=== PATIENT | male | born 1950 | race Caucasian/White ===

== ENCOUNTER 2024-05-15 09:32 | Outpatient (AMB) | payer MEDICARE, OTHER, SELFPAY ==
--- NOTE | 2024-05-15 09:48 | HO.SPINEOV ---
Intake Visit Reasons: low back pain Intake Note: Mr. Child, 73 y/o male, is here today c/o low back and bilateral leg pain. 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 HPI: This 73 year old male developed radiating pain in his right leg in November. Normally, he is very active with walking 4 miles a day and cycling and swimming. He has no idea why this symptom occurred but since November he can not walk for long distances before he has to sit down. The pain radiates to the front of his thigh and sometimes to his ankle. He can still cycle for long distances but when he gets off the bicycle the symptoms were developed. Sometimes the symptoms spread over to the left side. He tried physical therapy which aggravated his symptoms significantly and therefore he discontinued. Initially, he thought it was his right hip but this was evaluated and excluded as a cause. Second complaint is numbness of his 1st 3 digits on the left side. He did have a carpal tunnel release in the past. The symptoms are constantly present. He denies neck pain or radiating pain down his arms. No weakness. The following conservative treatment options were tried without success antiinflammatories, tylenol, physician guided home exercise plan, cortisone shots PMH: Carpal tunnel release left side Medications: Gabapentin, cyclobenzaprine and ibuprofen Allergies: NKDA Social history: Retired. Nonsmoker. Physical Exam: Pleasant male. Straight leg raise is negative bilaterally. There is a grade 4/5 weakness of the right iliopsoas. Sensory exam shows hypoesthesia of the 1st 3 digits on the left side. The remaining of the neurological exam is intact. Radiological Studies: MRI done at orthoped[facility] on 02/03/2024 shows moderate L4-5 central stenosis and moderate right L4 and L5 foraminal stenosis. A dynamic x-ray of the lumbar spine obtained today shows no instability. Impression/Plan: This 73-year-old male is suffering from unilateral neurogenic claudication due to central L4-5 stenosis and right L4 and L5 foraminal stenosis. I offered him a right L4 and L5 foraminotomy and L4-5 decompression of the central canal. He will get a preoperative clearance from his primary care physician. He is tentatively scheduled for July 17. Thank you for allowing me to participate in your patients care. total time spent was 50 minutes in counseling ,coordination of plan, personal review of imaging, surgical decision making and subsequent plan Navdeep Oakley MD, PhD Spine Fellowship Trained Neurosurgeon Director, [facility] Orders: Orders XR lumbar spine 4V min Today M48.062 - Spinal stenosis, lumbar region with neurogenic claudication Coding Level of Care Code New Pt Level 4 (23459) Diagnoses Lumbar stenosis with neurogenic claudication M48.062
== END 2024-05-15 10:59 | disposition home or self-care (01) ==
PROVIDERS: PCP Internal Medicine; Visit Provider Neurological Surgery
DX: M48.062 Spinal stenosis, lumbar region with neurogenic claudication (principal)
CPT/HCPCS: 99204

== ENCOUNTER 2024-05-15 09:32 | Outpatient (REF) | payer MEDICARE, SELFPAY ==
--- NOTE | ~2024-05-15 | XR_ITS ---
EXAMINATION: XR LUMBOSACRAL SPINE WITH OBLIQUES CLINICAL INFORMATION: Spinal stenosis, lumbar region with neurogenic claudication. COMPARISON: None available. TECHNIQUE: AP and lateral views of the lumbar spine. Lateral flexion-extension views were also obtained. FINDINGS: Marked facet arthropathy in the lower lumbar spine at L4-L5 and L5-S1. Grade 1 anterolisthesis of L5 on S1 (6 mm), appears unchanged with flexion and extension. More minor degrees of anterolisthesis of L4 on L5 and retrolisthesis of L1 on L2 and L2 on L3 also appear unchanged with flexion and extension. There is ybvh-iu-tgcvaqdj multilevel degenerative disc disease characterized by loss of intervertebral disc height and endplate osteophytes. Vertebral body heights are normal. Bones are osteopenic. SI joints appear well-preserved. Soft tissues are unremarkable aside from atherosclerotic calcifications in the abdominal aorta and iliac arteries. XR/XR lumbar spine 4V min IMPRESSION: 1. Marked facet arthropathy in the lower lumbar spine with multilevel spondylolisthesis, most pronounced at L5-S1. No appreciable changes in alignment with flexion or extension. 2. Swjn-fe-yrbikhve multilevel degenerative disc disease.
== END 2024-05-15 09:33 | disposition home or self-care (01) ==
LOC: HO.HOSX 09:32
PROVIDERS: PCP Internal Medicine; Visit Provider Neurological Surgery
DX: M48.062 Spinal stenosis, lumbar region with neurogenic claudication (principal); M79.605 Pain in left leg; M79.604 Pain in right leg
CPT/HCPCS: 72110; 99202

== ENCOUNTER 2024-07-23 08:30 | Day surgery (SDC) | payer MEDICARE, SELFPAY ==
[2024-07-09 12:14] VITALS: BP 159/97; PULSE 71; RESP 16; O2SAT 97; BMI 28.0
--- NOTE | 2024-07-09 12:31 | HO.ANESPROP2 ---
Documented by User: Marcy Chairez NP 07/10/24 13:41 HPI - Anesthesia Eval Consult details Narrative: 73yo M for Right L4 Foraminotomy and L4-5 Decompression, 07/23/24 Medically optimized per PCP No recent illness No CP/SOB within limits of spine symptoms. Prior to symptoms, no limits in activity Cardiac: Pt unaware of previous FL. Listed under medical hx from PCP. 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 Nml Stress 2022. Does not follow cardiology JAMI: s/p uvulectomy (carcinoma), no CPAP PE: Pt denies. Never on anticoag PMFSH Active Problems Active Problems: All Active Problems Lumbar stenosis with neurogenic claudication (Acute) Past Medical History Medical History Anemia Numbness Hyperlipidemia Iron deficiency anemia Erectile dysfunction Former smoker Sleep apnea Abnormal chest CT Pulmonary embolism Pericarditis Myocardial infarction Chest pain Abnormal EKG BPH (benign prostatic hyperplasia) Varicose veins of lower extremity Elevated PSA Lung nodule History of breast cancer in male Cancer of uvula Back pain Family History Family history of problems with anesthesia: No Surgical History Surgical History History of carpal tunnel surgery of left wrist Hx of tonsillectomy Hx of mastectomy H/O colonoscopy History of uvulectomy History of Problems with Anesthesia: No Social History Social History Are you a primary foster care social worker to a significant other at home: No Do you presently have visiting nurse or other home services: No Patient Tobacco Use Status: Former Tobacco user Use of substances other than those prescribed or required for medical reasons: No Have you been hit, kicked, punched, or otherwise hurt by someone within the past year? If so, by whom?: No Are you DNR?: No Advance Directives: No Advance Directives Information Provided: Yes Advance Directives on File: No Recently lost weight without trying: No Eating poorly because of decreased appetite: No Nutrition Risks: No Nutritional Risk Poor oral hygiene: Yes (full upper and lower dentures) Meds Allergies Allergy/AdvReac Type Severity Reaction Status Date / Time penicillin V Allergy Rash Verified 07/23/24 08:47 Home Medications ?Medication ?Instructions ?Recorded ?Confirmed ?Last Taken ?Type calcium carbonate 600 mg-vitamin 1 tab PO BID 07/08/24 07/23/24 Unknown History D3 10 mcg (400 unit) tablet cyclobenzaprine 5 mg tablet 5 mg PO BID PRN muscle spasm 07/08/24 07/23/24 Unknown History ferrous sulfate 324 mg (65 mg 324 mg PO 3XW 07/08/24 07/23/24 Unknown History iron) tablet,delayed release gabapentin 100 mg capsule 100 mg PO BID 07/08/24 07/23/24 Unknown History dmfulavfbfu-cvjsnmajm-jfq C-Mn 500 1 cap PO DAILY 07/08/24 07/23/24 Unknown History mg-400 mg capsule (Glucosamine Chondroitin Maximum Strength) tamsulosin 0.4 mg capsule 0.4 mg PO BEDTIME 07/08/24 07/23/24 Unknown History turmeric root extract 1,053 mg 1,076 mg PO DAILY 07/08/24 07/23/24 Unknown History tablet acetaminophen 500 mg tablet 500 mg PO TID PRN Pain 07/09/24 07/23/24 Unknown History ibuprofen 200 mg tablet 400 mg PO Q8H PRN Pain 07/09/24 07/23/24 07/17/24 History Exam Height,Weight and Vital Signs: Height 5 ft 10 in Weight 88.451 kg Last Vital Signs Pulse 71 07/09/24 12:14 Resp 16 07/09/24 12:14 BP 159/97 H 07/09/24 12:14 Pulse Ox 97 07/09/24 12:14 O2 Del Method Room Air 07/09/24 12:14 Pertinent Lab Results Pertinent Lab Results: Lab Results 07/09/24 Range/Units 12:53 WBC 4.9 (4.8-10.8) X10*3/uL RBC 5.33 (4.60-5.80) X10*6/uL Hgb 16.4 (14.0-18.0) g/dl Hct 46.1 (42.0-52.0) % MCV 86.5 (80.0-98.0) fL MCH 30.8 (27.0-33.0) pg MCHC 35.6 (31.0-36.0) g/dl RDW 13.2 (11.0-16.0) % Plt Count 166 (160-400) X10*3/uL MPV 8.9 L (9.4-12.4) fL Absolute Nucleated RBC 0.000 (0.0-0.012) X10*3/uL Nucleated RBC % (auto) 0.0 (0.0-0.2) /100WBC Sodium 139 (135-145) mmol/L Potassium 4.4 (3.3-5.1) mmol/L Chloride 102 (96-108) mmol/L Carbon Dioxide 28 (22-29) mmol/L Anion Gap 13 (12-20) BUN 13 (9-16) mg/dL Creatinine 0.86 (0.5-1.4) mg/dL Estim Creat Clear Calc 86.9 Estimated GFR > 60 Random Glucose 91 (60-115) mg/dL Calcium 10.3 H (8.4-10.2) mg/dL Narrative Narrative: EKG 07/2024 SR @ 63 PACs Old inferior infarct Nml exercise nuc perfusion stress test 10/2023 Airway Mallampati Class: II TM Dist: >3cm Neck ROM: Full Denture: Upper and Lower Heart: RRR Lungs: CTAB Assessment and Plan Assessment Anesthesia Assessment: Anesthesia Plan Discussed and PAT Visit Final Anesthetic Review Family History of Problems with Anesthesia: No History of Problems with Anesthesia: No Documented by User: Angela Ivey MD 07/23/24 11:12 COUNTS INCLUDE 234 BEDS AT THE [facility] Past Medical History Medical History Anemia Numbness Hyperlipidemia Iron deficiency anemia Erectile dysfunction Former smoker Sleep apnea Abnormal chest CT Pulmonary embolism Pericarditis Myocardial infarction Chest pain Abnormal EKG BPH (benign prostatic hyperplasia) Varicose veins of lower extremity Elevated PSA Lung nodule History of breast cancer in male Cancer of uvula Back pain Surgical History Surgical History History of carpal tunnel surgery of left wrist Hx of tonsillectomy Hx of mastectomy H/O colonoscopy History of uvulectomy Social History Social History Are you a primary foster care social worker to a significant other at home: No Do you presently have visiting nurse or other home services: No Patient Tobacco Use Status: Former Tobacco user Use of substances other than those prescribed or required for medical reasons: No Have you been hit, kicked, punched, or otherwise hurt by someone within the past year? If so, by whom?: No Are you DNR?: No Advance Directives: No Advance Directives Information Provided: Yes Advance Directives on File: No Recently lost weight without trying: No Eating poorly because of decreased appetite: No Nutrition Risks: No Nutritional Risk Poor oral hygiene: Yes (full upper and lower dentures) Meds Allergies Allergy/AdvReac Type Severity Reaction Status Date / Time penicillin V Allergy Rash Verified 07/23/24 08:47 Home Medications ?Medication ?Instructions ?Recorded ?Confirmed ?Last Taken ?Type calcium carbonate 600 mg-vitamin 1 tab PO BID 07/08/24 07/23/24 Unknown History D3 10 mcg (400 unit) tablet cyclobenzaprine 5 mg tablet 5 mg PO BID PRN muscle spasm 07/08/24 07/23/24 Unknown History ferrous sulfate 324 mg (65 mg 324 mg PO 3XW 07/08/24 07/23/24 Unknown History iron) tablet,delayed release gabapentin 100 mg capsule 100 mg PO BID 07/08/24 07/23/24 Unknown History ybwabkdlkur-aqtbsyzql-mpk C-Mn 500 1 cap PO DAILY 07/08/24 07/23/24 Unknown History mg-400 mg capsule (Glucosamine Chondroitin Maximum Strength) tamsulosin 0.4 mg capsule 0.4 mg PO BEDTIME 07/08/24 07/23/24 Unknown History turmeric root extract 1,053 mg 1,076 mg PO DAILY 07/08/24 07/23/24 Unknown History tablet acetaminophen 500 mg tablet 500 mg PO TID PRN Pain 07/09/24 07/23/24 Unknown History ibuprofen 200 mg tablet 400 mg PO Q8H PRN Pain 07/09/24 07/23/24 07/17/24 History Assessment and Plan Final Anesthetic Review NPO: Yes ASA Class: III Final Preanesthetic Review: No Changes in Pt Med Stat, Meds/Allgs Chart Reviewed, Consent Obtained/Reviewed and Anes Risks/Benef Reviewed Patient Risk: Intermediate Procedure Risk: Intermediate Anesthetic Plan Anesthetic Plan: GA Disposition: Standard PACU
[2024-07-09 12:58] LABS: Hematocrit 46.1 % (42.0-52.0); Hemoglobin 16.4 g/dl (14.0-18.0); Mean Corpuscular HGB Conc 35.6 g/dl (31.0-36.0); Mean Corpuscular Hemoglobin 30.8 pg (27.0-33.0); Mean Corpuscular Volume 86.5 fL (80.0-98.0); Mean Platelet Volume 8.9 fL (9.4-12.4); Platelet Count 166 X10*3/uL (160-400); Red Blood Count 5.33 X10*6/uL (4.60-5.80); Red Cell Distribution Width 13.2 % (11.0-16.0); White Blood Count 4.9 X10*3/uL (4.8-10.8)
[2024-07-09 13:56] LABS: Anion Gap 13 (12-20); Blood Urea Nitrogen 13 mg/dL (9-16); Calcium 10.3 mg/dL (8.4-10.2); Carbon Dioxide 28 mmol/L (22-29); Chloride 102 mmol/L (96-108); Creatinine Clr Calc Pharmacy 86.9; Estimated Glomerular Filt Rate > 60; Glucose Random 91 mg/dL (60-115); Potassium 4.4 mmol/L (3.3-5.1); Sodium 139 mmol/L (135-145)
[2024-07-23] VITALS (7 sets, daily range): BP systolic 132–154; BP diastolic 86–96; PULSE 77–86; RESP 14–17; TEMP 36.1–36.3; O2SAT 96–100; BMI 27.3
[2024-07-23] MEDS: Gabapentin 300 MG CAPSULE PO (08:59)
[2024-07-23] MEDS: methocarbamoL 750 MG TABLET PO (08:59)
[2024-07-23] MEDS: Lactated Ringers 1,000 ML 100 ML IVCONT (09:26)
[2024-07-23] MEDS: vancomycin HCL 1,500 MG in 0.9 % Sodium Chloride 500 ML 333.33 MG IV (09:47)
--- NOTE | 2024-07-23 09:49 | PC.NURSE ---
Cardiac strip noted to have PAC and PVC's. D/w Dr. Ivey. Ok per anesthesia, no EKG ordered. Pt stable, resting in bed.
--- NOTE | 2024-07-23 09:54 | PM.DS ---
DS: Providers Provider Date of Service: 07/23/24 Date of discharge: 07/23/24 Primary care physician: Hugh Sawyer MD Admitting clinician: Navdeep Oakley DS: Diagnosis Discharge Diagnosis (1) Lumbar stenosis with neurogenic claudication: Status: Acute DS: Summary Time Attestation Discharge Coordination Time (in mins): 5 Quality: Safe Use of Opioids Does Pt have an Active Cancer Diagnosis on the Problem List?: No Quality: Stroke Does the patient have a stroke diagnosis?: No Physical Exam Vital Signs: Vital Signs: Last Vital Signs Pulse 71 07/09/24 12:14 Resp 16 07/09/24 12:14 BP 159/97 H 07/09/24 12:14 Pulse Ox 97 07/09/24 12:14 O2 Del Method Room Air 07/09/24 12:14 BMI result Body Mass Index 27.3 Discharge Plan Discharge Patient Disposition: Home, Self-Care Referrals: Hugh Sawyer MD [Primary Care Provider] - 1 Week Discharge Medications: New docusate sodium [Colace] 100 mg capsule 100 mg PO BID Qty: 20 0RF oxycodone 5 mg tablet 5 mg PO Q4H PRN (Reason: pain) Qty: 30 0RF Rx Instructions: Partial Fill upon patient request. Continued tamsulosin 0.4 mg capsule 0.4 mg PO BEDTIME gabapentin 100 mg capsule 100 mg PO BID sggjgpytyud-tfqupiiqj-sia C-Mn [Glucosamine Chondroitin MaxStr] 500-400 mg Capsule 1 cap PO DAILY cyclobenzaprine 5 mg tablet 5 mg PO BID PRN (Reason: muscle spasm) calcium carbonate-vitamin D3 600 mg-10 mcg (400 unit) tablet 1 tab PO BID ferrous sulfate 324 mg (65 mg iron) Tablet,Delayed Release (Dr/Ec) 324 mg PO 3XW turmeric root extract 1,053 mg Tablet 1,076 mg PO DAILY ibuprofen 200 mg Tablet 400 mg PO Q8H PRN (Reason: Pain) acetaminophen 500 mg Tablet 500 mg PO TID PRN (Reason: Pain) Discharge Orders: Discharge Order (Routine); Ordered 07/23/24 Ordered By: Eze Mijares Diet: Advance to usual diet Activity on Discharge: As tolerated Activity Restrictions/Additional Instructions: After your spinal surgery we ask you to observe the following restrictions/guidelines: Activity: It is normal to feel some discomfort as you increase your activity, but that will improve with time. We ask you avoid heavy lifting or acitivities that cause pain. As a general rule, 8lbs is a safe limit for lifting right after surgery. Walk as much as you feel comfortable but not to exhaustion. You will feel extra tired the first few days after surgery. Stay well hydrated. It is OK to walk up and down stairs You may return to driving when you are off narcotics (such as vicodin, oxycodone, dilaudid, etc), and you are back to normal functional capacity. If you have any concerns please check with office before driving. Return to work is specific to each patient and each surgery, so please speak with your doctor/PA at first follow up. Please bring paperwork such as FMLA at that time if you need it filled out. Medications: For optimum pain control, it is best to start with a combination of 500 mg of Tylenol every 4 hours with 600 mg of Motrin every 8 hours, and use narcotics as needed in between for breakthrough pain. We will give you a short supply of narcotics after surgery (usually one weeks worth). If you need more please call the office but do not use more than prescribed. You will need to give our office 48 hours notice if you need narcotics refilled and we do not fill narcotics on weekends or evenings. If you are on a narcotic, it is a good idea to take a stool softener such as colace or senna to avoid constipation If you take blood thinner such as aspirin, Plavix, Coumadin, Effient, Eliquis etc for conditions such as Afib, DVT, Pulmonary embolus, coronary disease, stents etc please speak with your surgeon about specific details as to when you can resume these medications. You can resume NSAIDs on post op day 1 (eg: Motrin, Naproxen, etc). Follow up: Please call the office, , after surgery to arrange a 3 week follow up for wound check. Wound Care: You may remove your dressing on the first day after surgery. ?You may ?leave open to air. Please do not remove the steri strips underneath. they will fall off on their own in one week. IT IS NORMAL FOR THE WOUND TO OOZE OR BE BLOODY FOR A FEW DAYS AFTER SURGERY. ?IF THIS HAPPENS JUST PLACE NEW DRESSING OVER IT TO AVOID STAINING CLOTHES. You may shower on post op day # 1 We ask that you do not let the water soak the wound. If it does get wet, just towel dry lightly. Please do not scrub your incision or place any type of chemical/ointment on the wound. No tub baths, pools or jacuzzis for one month. If you have any leaking or redness from your wound, or fevers, please call office Print Language: Peruvian
--- NOTE | 2024-07-23 10:02 | MHC.SHP ---
Pre-Procedural Eval Section A - 24 Hr Update-Section A only Date of Service: 07/23/24 The patient is an INPATIENT: No Section B - Complete if H&P > 30 days Chief Complaint: Spinal stenosis, lumbar region with neurogenic cla Allergies: Allergies Allergy/AdvReac Type Severity Reaction Status Date / Time penicillin V Allergy Rash Verified 07/23/24 08:47 Review of Systems Sugical H&P ROS: Negative: Constitution, Cardiovascular, Respiratory, Neurological, Psychiatric, Hem-Onc, Allergic/Immunologic, Gastrointestinal, Genitourinary, Musculoskeletal, Integumentary, Endocrine and Eyes/Ears/Nose/Throat Exam Surgical H&P Exam: Normal: HEENT, Normal: Heart, Normal: Lungs, Normal: Extremities, Normal: Abdomen, Normal: Skin and Normal: Neurological ( awake, alert) Plan I have reviewed the history and physical and performed a pertinent physical examination on my patient. No changes have occurred unless specified. right L4 and L5 foraminotomy and L4-5 decompression of the central canal. Time Spent With Patient Time: Total time managing care of this patient today ____ minutes.
--- NOTE | 2024-07-23 11:55 | P.OP_ITS ---
Operative Note Operative Note Date of Service: 07/23/24 Narrative: Preoperative Diagnosis: L4-5 bilateral spinal stenosis/lateral recess stenosis/neural foraminal stenosis Operation: L4-5 Laminotomy, Partial facetectomy and foraminotomy with use of microscope Consent Informed Consent was obtained for this operation. I have explained the nature, purpose and benefits of the operation. I have discussed the risks and benefit of the operation including possible complications or adverse events with patient/family. Alternative(s) were discussed with the patient with their relative benefits and risks as well as the consequences of not accepting the operation were included in obtaining consent. Surgeon: KAILEE MARTINEZ MD, PHD Procedure Assisted By: Eze Babin Description of Procedure This patient is suffering from neurogenic claudication. The patient was offered a decompression L4-5. The procedure complications were explained. The patient was consented. The patient was brought to the operating room and endotracheally intubated. The patient was turned in prone position on the Favian frame. Prep and drape was done followed by timeout. The Physician apartment community assistant manager provided access. A mid lumbar incision was made followed by release of the paravertebral muscle on the right side to expose the L4-5 lamina and facet joints. An intraoperative x-ray was obtained to confirm the correct level. The microscope was brought in. I took over the procedure. The high-speed drill was used to do a right L4-5 laminotomy until flavum ligament was reached. A #2 Kerrison was used to expand the laminotomy near flush to the pedicles and to include a partial facetectomy. The flavum ligament was opened and resected with a #3 Kerrison to decompress the underlying thecal sac. The flavum ligament was removed to decompress the lateral recess and the exiting L5 nerve roots. A long nerve hook could be easily passed along the medial side of the pedicles as a sign of adequate decompression. I inspected the L4 and L5 foraminotomy but no significant stenosis was found. Patient was turned contralaterally. The spinous processes undercut in order for me to decompress the contralateral side. A 2. And 3 Kerrison were used to decompress the contralateral side. A long nerve root could be easily passed flush to the pedicle as a sign of adequate decompression. The microscope was removed. Hemostasis was done. The physician apartment community assistant manager close the Incision in 2 layers. Steri-Strips were used to approximate incision. An OpSite with Tegaderm was used to cover the incision. All sponge needle counts were correct. Patient was extubated and transported in stable is to recovery room. Anesthesia: General Estimated Blood Loss (ml): 30 mL Complications: None Duration of Surgery: Under 60 Minutes Postoperative Plan: Discharge to home
[2024-07-23] MEDS: ondansetron HCL 4 MG/2 ML VIAL IVPUSH (12:47)
== END 2024-07-23 14:01 | disposition home or self-care (01) ==
PROVIDERS: Nurse Practitioner; PCP Internal Medicine; Visit Provider Neurological Surgery
PROC: (CPT 63047; principal; 2024-07-23 12:00)
DX: M48.062 Spinal stenosis, lumbar region with neurogenic claudication (principal); M79.604 Pain in right leg; G89.4 Chronic pain syndrome; M62.81 Muscle weakness (generalized); R26.2 Difficulty in walking, not elsewhere classified; E78.5 Hyperlipidemia, unspecified; G47.33 Obstructive sleep apnea (adult) (pediatric); R20.1 Hypoesthesia of skin; R07.9 Chest pain, unspecified; Z85.3 Personal history of malignant neoplasm of breast; Z85.818 Personal history of malignant neoplasm of other sites of lip, oral cavity, and pharynx; Z79.1 Long term (current) use of non-steroidal anti-inflammatories (NSAID); Z79.899 Other long term (current) drug therapy; Z87.891 Personal history of nicotine dependence
CPT/HCPCS: 63047; 36415; 80048; 85027; J0131; J1100; J1885; J2405; J2704; J3010; J3371

== ENCOUNTER → 2024-07-23 08:30 | Outpatient (BNV) | payer MEDICARE, SELFPAY | PROVIDERS: PCP Internal Medicine; Visit Provider Neurological Surgery | DX: M48.062 Spinal stenosis, lumbar region with neurogenic claudication (principal) | CPT/HCPCS: 63047; 99499 ==

== ENCOUNTER 2024-08-13 10:55 | Outpatient (AMB) | payer MEDICARE, SELFPAY ==
--- NOTE | 2024-08-13 10:59 | HO.SPINEOV ---
Intake Visit Reasons: 1st post op Intake Note: Mr. Child is here today for his 1st post-op Litigation Attorney Associate Required: No Allergies penicillin V Allergy (Verified 08/13/24 11:18) Rash Assessment & Plan Assessment & Plan (1) S/P spinal surgery: Code(s): Z98.890 - Other specified postprocedural states Category: Medical Plan Procedure: L4-5 lumbar decompression. Bishop is a pleasant 73-year-old male who comes in today for his 1st postoperative visit. To recap he was initially seen in office for radiating pain in his right leg / hip. He reports that his right-sided shooting radiculopathy has largely resolved since his surgery. Unfortunately he has been dealing with a difficult situation at home and had his tenant who lives next door to him pass away. The family has not been helpful in removing his belongings so he has had to go up and down the stairs hauling belongings out of this tenants apartment to clear it out for a new occupant. He feels as though this is aggravated his hip/back pain. Thankfully he is not taking any medication other than an ibuprofen occasionally. No new neurological deficits. The patient is able to ambulate well and rises from a seated position without difficulty. His posterior incision site appears closed and well healing. Bishop states that he will be leaving in about a week to go to [place] for the season. He does not want to make a subsequent follow-up visit. I informed him that that is fine he is more than welcome to call the office who like to see us in the future. Overall he is doing very well right now. Silvestre Oakley MD,PhD [facility] Coding Level of Care Code Global (64762) Diagnoses S/P spinal surgery Z98.890
== END 2024-08-13 11:48 | disposition home or self-care (01) ==
PROVIDERS: PCP Internal Medicine; Visit Provider Physician Assistant
DX: Z98.890 Other specified postprocedural states (principal)
CPT/HCPCS: 99024

== ENCOUNTER → 2024-08-13 10:55 | Outpatient (BNVA) | payer MEDICARE, SELFPAY | PROVIDERS: PCP Internal Medicine; Visit Provider Physician Assistant | DX: M54.9 Dorsalgia, unspecified (principal); Z09 Encounter for follow-up examination after completed treatment for conditions other than malignant neoplasm; Z98.890 Other specified postprocedural states | CPT/HCPCS: 99212 ==

== ENCOUNTER 2024-10-22 11:31 | Outpatient (AMB) | payer MEDICARE, SELFPAY ==
--- NOTE | 2024-10-22 11:03 | A.SPINEOV_ITS ---
Intake Visit Reasons: late 2nd post op Intake Note: Mr. 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 To recap he was initially seen in clinic for low back pain with a component of right leg pain. He stated that the pain radiates to the front of his thigh and sometimes to his ankle. Today, he reports that he was having a recurrence of significant low back pain with shooting pains into his posterior and anterior thighs. In addition to this, he has some pains in his bilateral anterior tibialis. He states that the pain is exacerbated by activities such as walking, swimming. His pain is relieved by a relaxing and reducing activity. He is concerned because he feels significantly restricted in his unable to engage in meaningful activities. No new neurological deficits. Patient is able to ambulate well, rises from a seated position without difficulty. Lower extremity strength is 5/5 bilaterally. No significant sensational deficits. Reflexes are 2+ intact in lower extremities. Due to his new onset bilateral lumbar radiculopathy I would like to order noel lumbar MRI to rule out any nerve impingement since the surgery. I will also get him a set of dynamic lumbar x-rays today to evaluate for instability. Silvestre Oakley MD,PhD [facility] Orders: Orders XR lumbar spine 4V min Today Z98.890 - Other specified postprocedural states MR lumbar spine wo/w con Today Z98.890 - Other specified postprocedural states Coding Level of Care Code Global (76983) Diagnoses S/P spinal surgery Z98.890
== END 2024-10-22 16:12 | disposition home or self-care (01) ==
PROVIDERS: PCP Internal Medicine; Visit Provider Physician Assistant
DX: Z98.890 Other specified postprocedural states (principal)
CPT/HCPCS: 99024

== ENCOUNTER 2024-10-22 11:31 | Outpatient (REF) | payer MEDICARE, SELFPAY | END 2024-10-22 11:32 | disposition home or self-care (01) | LOC: HO.HOSX 11:31 | PROVIDERS: PCP Internal Medicine; Visit Provider Physician Assistant | DX: Z98.890 Other specified postprocedural states (principal) | CPT/HCPCS: 72110; 99212 ==